=== PATIENT | female | born 1955 | race Caucasian/White ===

== ENCOUNTER 2024-08-30 07:53 | Day surgery (SDC) | payer MEDICARE, OTHER, SELFPAY ==
[2024-08-30 08:06] VITALS: BMI 24.2
[2024-08-30 08:20] VITALS: BP 127/78
[2024-08-30 08:29] VITALS: BP 127/78
[2024-08-30 10:08] VITALS: BP 127/74
--- NOTE | 2024-08-30 10:14 | ITS.CL.IMPLP ---
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
Implant Loop
Procedure Report:
Date of Procedure: August 30, 2024.
Procedure: Insertable Loop Recorder Explant.
Indication: Loop at the end of service.
Performing physician: Jamshid Chong MD, [facility].
Explant: [email or web address]; [employer], Model# [id number]; Serial# [id number] (implanted on 03/29/2022).
Technique: A time out was performed per protocol. The patient was prepped and draped in the usual fashion. Anesthesia was administered by the anesthesia staff. Local anesthetic was applied to the left prepectoral subcutaneous tissue. An incision
was made over the superior aspect of the device. Dissection was carried to the capsule. The capsule was entered. The old device was explanted. The pocket appeared normal. Hemostasis was excellent. The pocket was irrigated saline. The incision was
closed with 4-0 Monocryl suture. The skin was closed with steri-strips. The estimated blood loss was less than 0.5 mL. There were no complications. No fluoroscopy was used.
Conclusion: Uncomplicated insertable loop explantation.
Recommendation: Routine incision care.
cc: Vicky Beebe MD.
== END 2024-08-30 10:31 | disposition home or self-care (01) ==
LOC: CATH 07:53
PROVIDERS: ATTENDING PHYSICIAN Internal Medicine Cardiovascular Disease; FAMILY PHYSICIAN Family Medicine
DX: Z09 Encounter for follow-up examination after completed treatment for conditions other than malignant neoplasm (principal); R55 Syncope and collapse; K21.9 Gastro-esophageal reflux disease without esophagitis
CPT/HCPCS: 33286